=== PATIENT | female | born 1975 | race Caucasian/White ===

== ENCOUNTER 2021-07-07 19:32 | Emergency (ER) | payer BC ==
[2021-07-07] MEDS ORDERED: Ibuprofen 200 MG Tab PO STA (19:58)
--- NOTE | 2021-07-07 20:17 | EDM.PDOC ---
ED HPI GENERAL MEDICAL PROBLEM - General Stated Complaint: FALL Time Seen by Provider: 07/07/21 19:50 Source of Information: Reports: Patient History Limitations: Reports: No Limitations - History of Present Illness INITIAL COMMENTS - FREE TEXT/NARRATIVE: Patient comes emergency department today with complaints of an injury to her left ankle. Just prior to arrival the patient was walking down some steps when she slipped inverting her left ankle. She had immediate pain to the left lateral malleolus. She is able to ambulate on her ankle. She denies any paresthesias. There is no other injury to her left lower extremities. She has not take anything for pain prior to arrival. She has broken this ankle as well as had a sprain in this ankle in the past. She denies any other injury other than to her left ankle. Left Ankle Pain Score (Numeric/FACES): 6 Review of Systems - Review of Systems Review Of Systems: Comprehensive ROS is negative, except as noted in HPI. ED EXAM, GENERAL - Physical Exam Exam: See Below Exam Limited By: No Limitations General Appearance: Alert, WD/WN, No Apparent Distress Respiratory/Chest: No Respiratory Distress Cardiovascular: Normal Peripheral Pulses Peripheral Pulses: 2+: Posterior Tibial (L), Posterior Tibial (R), Dorsalis Pedis (L), Dorsalis Pedis (R) Back Exam: Normal Inspection, Full Range of Motion Extremities: Normal Range of Motion, Normal Capillary Refill. No: Normal Inspection (Examination of the left ankle shows some tenderness and swelling over the lateral malleolus of the left ankle. She has a positive talar tilt laterally. Negative medially. She is able to flex and extend appropriately.), Slow Capillary Refill, Limited Range of Motion Neurological: Alert, Oriented, No Motor/Sensory Deficits Psychiatric: Normal Affect, Normal Mood Course - Vital Signs Last Recorded V/S: Last Vital Signs Temp 98.4 F 07/07/21 19:45 Pulse 95 07/07/21 19:45 Resp 17 07/07/21 19:45 BP 113/58 L 07/07/21 19:45 Pulse Ox 96 07/07/21 19:45 - Orders/Labs/Meds Orders: Active Orders 24 hr Category Date Time Status DME for Discharge [COMM] Stat Oth 07/07/21 20:17 Ordered Meds: Medications Discontinued Medications Generic Name Dose Route Start Last Admin Trade Name Freq PRN Reason Stop Dose Admin Ibuprofen 600 mg 07/07/21 19:58 Ibuprofen 200 Mg Tab PO 07/07/21 19:59 NOW STA - Radiology Interpretation Free Text/Narrative:: X-ray of the left ankle initially reviewed extemporaneously by myself. The ankle mortise is intact. There is no overt bony deformity. No subluxation dislocation. Some soft tissue swelling laterally. There is a small fragment in the gutter appears old and has had a previous injury to that site. Radiological review to follow. X-ray of the left ankle show soft tissue swelling over the lateral malleolus. Small slightly displaced avulsion fragment at the tip of the fibula. Chronic appearing avulsion fragment gutter of the ankle mortise. Achilles tendon and plantar fascia eenthesopathy at the calcaneal attachments - Re-Assessments/Exams Free Text/Narrative Re-Assessment/Exam: 07/07/21 20:21 Patient was given 600 mg ibuprofen. X-ray is negative by my extemporaneously view. I reviewed the negative results with the patient. We will place her in a stirrup strap. Discussed weightbearing as tolerated without pain she does have crutches at home for which she will use. We also have her ensure that she has good range of motion with her foot. Discharge directions as below are explained to the patient she was comfortable this plan and her questions are answered. 07/08/21 12:23 I did call the patient today after the radiology report was available and updated her on this. I feel that this is most likely chronic from previous injury but following was recommeded. Departure - Departure Time of Disposition: 20:19 Disposition: Home, Self-Care 01 Clinical Impression: Left ankle sprain Qualifiers: Encounter type: initial encounter Involved ligament of ankle: unspecified ligament Qualified Code(s): S93.402A - Sprain of unspecified ligament of left ankle, initial encounter - Discharge Information Instructions: RICE Therapy for Routine Care of Injuries, [id number], Ankle Sprain, [id number] Referrals: Jun Roberto MD [Primary Care Provider] - Forms: ED Department Discharge Additional Instructions: Ankle stirrup strap at all times until 2 weeks post symptom resolution. Tylenol and or Ibuprofen as needed for pain. RICE therapy as per discharge instruction sheet. The more the ice the better. Write the alphabet with your big toe of affected foot 4-6 times a day in the air as shown in the ED. Weight bearing as tolerated without any pain. You have crutches at home. Slowly advance weight as tolerated without pain. Return to the ED if new or worsening symptoms. Follow up with PCP in a week if not improving. - My Orders Last 24 Hours: My Active Orders 07/07/21 20:17 DME for Discharge [COMM] Stat - Assessment/Plan Last 24 Hours: My Active Orders 07/07/21 20:17 DME for Discharge [COMM] Stat
--- NOTE | 2021-07-07 20:57 | CR ---
[id number] RAD/RAD Ankle Left 3V Min Exam: RAD Ankle Left 3V Min Indication:INJURY Comparison: No prior imaging for comparison. Discussion/Impression: Soft tissue swelling over the lateral malleolus. Small slightly displaced avulsion fragment at the tip of the fibula. Chronic appearing avulsed fragment gutter of the ankle mortise. Achilles tendon and plantar fascia enthesopathy at their calcaneal attachments. Luis Kerr MD 07/07/[id number] Thank you for allowing us to participate in the care of your patient.
== END 2021-07-07 20:27 | disposition home or self-care (01) ==
LOC: VM.ED 19:32
DX: S93.402A Sprain of unspecified ligament of left ankle, initial encounter (principal); X50.1XXA Overexertion from prolonged static or awkward postures, initial encounter
CPT/HCPCS: 73610-LT; 99283; 99283-25